=== PATIENT | male | born 2000 | race Hispanic/Latino ===

== ENCOUNTER 2022-01-21 20:11 | Emergency (ER) | payer MEDICAID ==
[~2022-01-21] VITALS: Ht 162.6 cm; Wt 88.0 kg
[2022-01-21 20:15] VITALS: BP 125/74
[2022-01-21 21:21] LABS: APPEARANCE,URINE CLOUDY (CLEAR); BILIRUBIN,URINE NEGATIVE (NEGATIVE); COLOR,URINE YELLOW (YELLOW); GLUCOSE, URINE (UA) NEGATIVE (NEGATIVE); KETONES,URINE 10 mg/dL (NEGATIVE); LEUKOCYTE ESTERASE ,URINE NEGATIVE Leu/uL (NEGATIVE); NITRATE,URINE NEGATIVE (NEGATIVE); OCCULT BLOOD,URINE LARGE (NEGATIVE); PROTEIN,URINE 50 mg/dL (NEGATIVE); UROBILINOGEN,URINE 0.2 mg/dL (0.2-1.0)
[2022-01-21 21:25] LABS: BACTERIA,URINE FEW /HPF (None Seen); MUCUS,URINE MOD LPF (None Seen); RBC,URINE >100 /HPF (0-1)
[2022-01-21] MEDS ORDERED: IBUP-2071 PO (21:26)
[2022-01-21] MEDS ORDERED: CEPH500B PO (21:29)
[2022-01-21] MEDS ORDERED: CEFTRIAXONE 1G VIAL IM ONE (21:30)
[2022-01-21] MEDS ORDERED: IBUPROFEN 800 MG TAB PO ONE (21:30)
[2022-01-21] MEDS ORDERED: CEFTRIAXONE 1G VIAL ONE (21:45)
== END 2022-01-21 22:13 | disposition home or self-care (01) ==
LOC: EDH 20:11
DX: S30.22XA Contusion of scrotum and testes, initial encounter (principal); N39.0 Urinary tract infection, site not specified; W22.8XXA Striking against or struck by other objects, initial encounter; Y93.89 Activity, other specified; Y92.89 Other specified places as the place of occurrence of the external cause; Y99.8 Other external cause status
CPT/HCPCS: 99283; 87088; 81001; 96372; J0696